=== PATIENT | female | born 1980 | race Two or more races ===

== ENCOUNTER 2024-09-04 23:39 | Inpatient (IN) | payer OTHER, SELFPAY ==
[2024-09-04 23:59] VITALS: BP 96/61; PULSE 81; RESP 20; TEMP 37; O2SAT 100
[2024-09-05] VITALS (27 sets, daily range): BP systolic 40–140; BP diastolic 33–96; PULSE 67–108; RESP 15–29; TEMP 36–37.1; O2SAT 96–100; BMI 33.9
[2024-09-05] MEDS: ONDANSETRON INJ 2 MG/ML INJ 2 ML 4 MG IV ×4 (00:02→19:20)
[2024-09-05 00:11] LABS: Basophils % (Auto) 0 % (0-2.5); Eosinophils # (Auto) 0.2 Thou/mm3 (0.0-0.5); Eosinophils % (Auto) 1 % (0-10); Hematocrit 36.3 % (36.0-46.0); Hemoglobin 12.5 g/dL (12.0-16.0); Immature Granulocytes % (Auto) 0 % (0-0); Immature Granulocytes Auto 0.04 Thou/mm3 (0.00-0.00); Lymphocytes # (Auto) 4.5 Thou/mm3 (1.0-4.8); Lymphocytes % (Auto) 32 % (10-50); Mean Corpuscular HGB Conc 34.4 g/dl (31.0-37.0); Mean Corpuscular Hemoglobin 29.6 pg (25.0-35.0); Mean Corpuscular Volume 86 fL (80-100); Monocytes # (Auto) 1.1 Thou/mm3 (0.0-0.8); Monocytes % (Auto) 8 % (0-12); Neutrophils # (Auto) 8.4 Thou/mm3 (1.8-7.7); Neutrophils % (Auto) 59 % (37-80); Nucleated Red Blood Cell % 0 /100 WBC (0); Platelet Count 245 Thou/mm3 (140-440); RDW Standard Deviation 39.5 fL (36.4-46.3); Red Blood Count 4.23 Miln/mm3 (4.00-5.20); White Blood Count 14.2 Thou/mm3 (3.6-11.0)
[2024-09-05 00:28] LABS: Alanine Aminotransferase 26 U/L (10-49); Albumin, Serum 4.2 gm/dL (3.5-5.0); Albumin/Globulin Ratio 1.8 (1.2-2.2); Alkaline Phosphatase 46 U/L (46-116); Anion Gap 9 (7-16); Aspartate Amino Transferase 28 U/L (0-34); BUN/Creatinine Ratio 9 Ratio (12-20); Bilirubin,Total 0.3 mg/dL (0.3-1.2); Blood Urea Nitrogen 8 mg/dL (9-23); Calcium 9.3 mg/dL (8.3-10.6); Calcium (Corrected) 9.3 mg/dL (8.5-10.1); Carbon Dioxide 21.9 mMol/L (20.0-31.0); Chloride 105 mMol/L (98-107); Creatinine (Component) 0.9 mg/dL (0.6-1.3); Globulin 2.4 gm/dL (2.3-3.5); Glucose 115 mg/dL (74-106); Osmolality,Calculated 271 (275-295); Potassium 3.2 mMol/L (3.4-5.1); Sodium 136 mMol/L (136-145); Total Protein 6.6 gm/dL (5.7-8.2); Troponin I < 0.020 ng/mL (0.0-0.045); eGFR > 60 See Note
[2024-09-05 00:44] LABS: INR 0.9 (0.9-1.3); Partial Thromboplastin Time 20.5 Seconds (22.0-36.0); Prothrombin Time 10.2 Seconds (9.0-12.2)
[2024-09-05] MEDS: METOCLOPRAMIDE INJ 5 MG/ML VIAL 2 ML 10 MG IVP (00:44)
[2024-09-05] MEDS: SODIUM CHLORIDE 0.9% 1000 ML 1,000 ML 999 ML IV ×2 (00:44→12:28)
[2024-09-05 01:02] LABS: Beta HCG,Quantitative 49789 mIU/mL (<5.0)
--- NOTE | 2024-09-05 01:08 | PD.EDABDPN ---
ED Abdominal Pain RME/HPI General Chief Complaint: Abdominal Pain Stated complaint: ABD PAIN,N/V Time seen by provider: 09/04/24 23:45 Arrival date/time: 09/04/24 23:39 RME / HPI RME / HPI narrative: Dr. Guerra?s Main ED Evaluation: 43yo @ 8 weeks 6 days by LMP (07/05/24) presents to the ED for a chief complaint of lower abdominal pain and dry heaving starting approximately 20 min before arrival. States the pain radiates to her epigastric area. She reports associated nausea, dry heaving, and diffuse abdominal pain. States she had diarrhea yesterday. She denies vomitus, fever, chills. Denies urinary symptoms. Denies vaginal bleeding, vaginal discharge or any other associated symptoms. Denies any history of similar symptoms. No known allergies. Patient states she recently finished treatment for bronchitis, reporting she was on albuterol, prednisone, and an inhaler. Patient states she has her first OB appointment on Saturday to establish care. She is taking prenatals. Related Data Previous Rx's ?Medication ?Instructions ?Recorded docusate sodium 100 mg capsule 100 mg PO QDAY 30 days #30 caps 09/05/24 hydrocodone 5 mg-acetaminophen 325 1 tab PO Q6H PRN pain 5 days #20 09/05/24 mg tablet tabs ibuprofen 800 mg tablet 800 mg PO Q6H 10 days #40 tabs 09/05/24 Allergies Allergy/AdvReac Type Severity Reaction Status Date / Time No Known Allergies Allergy Verified 09/05/24 05:15 Review of Systems Review of Systems Systems Reviewed: All systems reviewed, normal except as documented Narrative Review of Systems: Gen: No fever, no chills, no weight loss, + shortness of breath EYES: No discharge, no visual changes, no pain HEENT: No ear pain, no congestion, no sore throat PULM: + shortness of breath, no cough, no congestion CV: No chest pain, no dyspnea on exertion, no palpitations GI: + nausea, no vomiting, + diarrhea, + pain, no constipation : No frequency, no urgency, no dysuria, + vaginal pain Musc/skel: No joint pain, no back pain Skin: No rash Psyc: No hallucinations, no depression Heme/Lymph: No easy bleeding or bruising tendencies Neuro: No weakness, no headache Past Medical History Past Medical History CARDIAC: Negative Congestive Heart Failure RESPIRATORY: Positive Asthma and Bronchitis; Negative Chronic Obstructive Pulmonary Disease (COPD) GENITOURINARY: Negative Renal Disease ENDOCRINE: Negative Diabetes Mellitus Type 1 or Diabetes Mellitus Type 2 Surgical History OTHER SURGICAL HX: Hx LEEP Social History SMOKING STATUS: Never smoker ED Exam Narrative Physical exam: GENERAL APPEARANCE: alert and oriented x 4, well-developed, well-nourished, no acute distress HEENT: Normocephalic, atraumatic; pupils equal, round, reactive to light; EOMI; mucous membranes pink, moist; oropharynx clear NECK: Supple LUNGS: CTABL; no wheezes, no rales, no rhonchi HEART: Regular rate, regular rhythm; normal S1, S2; no murmurs ABDOMEN: mildly distended; normal BS; soft, bilateral lower abdominal tenderness, no guarding, no rebound; no masses, no organomegaly, no hernia BACK: no CVA tenderness EXTREMITIES: atraumatic; no edema NEUROLOGIC: awake; alert and oriented x4; cranial nerves II-XII grossly intact; no focal sensory or motor deficits PSYCHIATRIC: appropriate mood and affect SKIN: warm, dry, normal color; no rashes Course Course Course Narrative: 0233: Called urgently to bedside by nurse that the patient is acutely worse, hypotensive at 69/37 with increasing lower abdominal pain, tenderness, and fullness. Abdomen acutely tender, fullness. Patient pale, diaphoretic. Concern for ruptured ectopic. 2L NS IVF, type and screen, PRBCs uncrossmatched x 2 stat, crossmatched x 2 stat, and STAT pelvic ultrasound ordered. Call out to Dr. Rodgers for emergent consult. 0240: Patient states she knows she's bloodtype A+. 0247: US is here. 0254: Dr. Rodgers is here. 0259: Dr. Rodgers called the house shorer to let her know we need to take to the patient to the OR stat. 0310: BP is 82/47 with a HR of 81. 0316: BP is 64/40 with a HR of 81. 0320: BP is 78/50 with a HR of 76. Patient has received 1U of PRBCs and is receiving a 2nd and 3rd. 0339: Patient to OR. Quality Measures none Orders Category Date Time Status Place in Surgical Day Care Routine Admission 09/05/24 03:11 Active Consent [Obtain Written Consent For:] .NOW Care 09/05/24 03:09 Completed EKG (ED ONLY) *Do not use* NOW Care 09/04/24 23:56 Completed Insert IV NOW Care 09/05/24 00:10 Completed Transfuse,blood/blood products NOW Care 09/05/24 02:34 Completed Transfuse,blood/blood products NOW Care 09/05/24 04:15 Completed Diet Regular Diet 09/05/24 Breakfast Completed EKG (ED Only) Stat Exams 09/04/24 23:56 Ordered US OB <= 14 weeks fetus Stat Exams 09/05/24 02:42 Completed Beta HCG,Quantitative Stat Lab 09/04/24 23:55 Completed CBC Stat Lab 09/04/24 23:55 Completed CBC Stat Lab 09/05/24 06:10 Completed CBC [CBC] Timed Lab 09/05/24 11:31 Completed Comprehensive Metabolic Panel Stat Lab 09/04/24 23:55 Completed FFP [Fresh Frozen Plasma] Stat Lab 09/05/24 02:56 Results Lipase Stat Lab 09/04/24 23:55 Completed PT [Prothrombin Time with INR] Stat Lab 09/04/24 23:55 Completed Partial Thromboplastin Time Stat Lab 09/04/24 23:55 Completed Red Blood Cells Stat Lab 09/05/24 02:56 Results Troponin I Stat Lab 09/04/24 23:55 Completed Type and Screen Stat Lab 09/05/24 02:56 Results Acetaminophen Tab [Tylenol ES Tab] Med 09/05/24 02:24 Discontinued 1,000 mg PO X1 ONE Acetaminophen Tab [Tylenol Tab] Med 09/05/24 03:10 Discontinued 650 mg PO Q6H PRN Bupivacaine Mpf 0.25% [Sensorcaine-Mpf Inj 0.25%] Med 09/05/24 03:42 Discontinued 50 ml .ROUTE .STK-MED ONE Dexamethasone Inj [Decadron Inj] Med 09/05/24 03:30 Discontinued 10 mg .ROUTE .STK-MED ONE Glycopyrrolate Inj [Robinul Inj] Med 09/05/24 04:52 Discontinued 1 mg .ROUTE .STK-MED ONE Lidocaine Inj Pf 2% 2 ml [Xylocaine Inj Pf Inj 2% 2 ml] Med 09/05/24 03:38 Discontinued 2 ml .ROUTE .STK-MED ONE Meperidine Inj [Demerol Inj] Med 09/05/24 06:05 Discontinued 12.5 mg IV Q5M PRN Metoclopramide Inj [Reglan Inj] Med 09/05/24 00:30 Discontinued 10 mg IVP X1 ONE Metoclopramide Inj [Reglan Inj] Med 09/05/24 00:34 Discontinued 10 mg IVP X1 ONE Metoclopramide Inj [Reglan Inj] Med 09/05/24 06:05 Discontinued 10 mg IVP X1 PRN Midazolam Inj [Versed Inj] Med 09/05/24 03:48 Discontinued 2 mg .ROUTE .STK-MED ONE Morphine Inj Med 09/05/24 07:20 Discontinued 2 mg IVP Q4HR PRN Morphine Inj Med 09/05/24 04:57 Discontinued 4.5 mg IV Q3HR PRN Neostigmine Inj 1:1000 [Bloxiverz Inj 1:1000] Med 09/05/24 04:52 Discontinued 10 ml .ROUTE .STK-MED ONE Ondansetron Inj [Zofran Inj] Med 09/05/24 03:08 Discontinued 4 mg .ROUTE .STK-MED ONE Ondansetron Inj [Zofran Inj] Med 09/05/24 03:10 Discontinued 4 mg IV Q6H PRN Ondansetron Inj [Zofran Inj] Med 09/04/24 23:57 Discontinued 4 mg IV X1 ONE Ondansetron Inj [Zofran Inj] Med 09/05/24 03:13 Discontinued 4 mg IV X1 ONE PHENYLEPHRINE INJ in NS [Morro-synephrine Inj/Ns] Med 09/05/24 03:46 Discontinued 1,000 mcg .ROUTE .STK-MED ONE Propofol Inj [Diprivan Inj] Med 09/05/24 03:30 Discontinued 200 mg IV .STK-MED ONE Rocuronium Inj [Zemuron Inj] Med 09/05/24 03:30 Discontinued 100 mg .ROUTE .STK-MED ONE Simethicone [Mylicon Chew] Med 09/05/24 07:43 Discontinued 80 mg PO QID PRN Sodium Chloride 0.9% 1000 ml [Ns] 1,000 ml Med 09/05/24 00:21 Discontinued IV 999 mls/hr Sodium Chloride 0.9% 1000 ml [Ns] 2,000 ml Med 09/05/24 02:30 Discontinued IV 999 mls/hr Tranexamic Acid Inj Med 09/05/24 04:28 Discontinued 1,000 mg .ROUTE .STK-MED ONE bisacodyL [Dulcolax Supp] Med 09/05/24 03:10 Discontinued 10 mg LA QDAY PRN bisacodyL [Dulcolax] Med 09/05/24 03:10 Discontinued 10 mg PO QDAY PRN fentaNYL INJ [Sublimaze Inj] Med 09/05/24 03:30 Discontinued 100 mcg .ROUTE .STK-MED ONE fentaNYL INJ [Sublimaze Inj] Med 09/05/24 04:56 Discontinued 100 mcg .ROUTE .STK-MED ONE fentaNYL INJ [Sublimaze Inj] Med 09/05/24 06:05 Discontinued 50 mcg IV Q5MIN PRN fentaNYL INJ [Sublimaze Inj] Med 09/05/24 02:40 Discontinued 50 mcg IVP X1 ONE hydrALAZINE INJ [Apresoline Inj] Med 09/05/24 06:05 Discontinued 5 mg IV Q20MIN PRN Code Status Routine Oth 09/05/24 06:42 Completed Late Tray Request Routine Oth 09/05/24 07:41 Active Transfer Order Routine Transfer 09/05/24 05:03 Completed Vital Signs Vital signs: Vital Signs Temperature 98.6 F 09/04/24 23:59 Pulse Rate 81 09/04/24 23:59 Respiratory Rate 20 09/04/24 23:59 Blood Pressure 96/61 09/04/24 23:59 Pulse Oximetry (%) 100 09/04/24 23:59 Oxygen Delivery Method Room Air 09/04/24 23:59 Pulse ox is 100% on room air, which is normal according to my interpretation. Abdominal Pain MDM MDM Narrative MDM Narrative:: Scribe Attestation: 09/05/24 - Nai Marques am scribing for and in the presence of Dr. Guerra. Patient data External records reviewed:: [facility] previous records (Per chart review, patient has no previous ED visits or admissions to this facility.) Clinical information provided by:: patient Social determinants that could affect healthcare access:: none Patient has the following chronic illnesses:: asthma How is presenting disease/condition affected by chronic disease/condition?: uneffected by Evaluation data The following diagnostics were reviewed and interpreted by me:: lab results, radiology exam(s) and EKG tracing(s) Lab and/or radiology exams considered but not ordered:: none Interpretation Summary: WBC count is elevated at 14.2, Lipase is slightly elevated at 55, Potassium is slightly low at 3.2, [place] [address], according to my interpretation. EKG done at 0019 shows NSR, rate of 65, baseline wander, Q waves in lead II, III, and aVF, no acute ischemic changes, according to my interpretation. Medications / Prescriptions Medications or Prescriptions considered but not ordered:: none Medication administrations:: Medication Administration History Discontinued Medications Acetaminophen (Acetaminophen 500 Mg Tablet) 1,000 mg PO X1 ONE Stop: 09/05/24 02:25 Last Admin: 09/05/24 02:27 Dose: 1,000 mg Documented By: ANDI Acetaminophen (Acetaminophen 325 Mg Tablet) 650 mg PO Q6H PRN PRN Reason: Fever >101.5 Stop: 10/05/24 03:09 Hydrocodone Bitart/Acetaminophen (Hydrocodone/Apap 5/325 Tablet) 1 tab PO Q4HR PRN PRN Reason: PAIN SCALE 1-3 (mild Stop: 09/11/24 09:08 Hydrocodone Bitart/Acetaminophen (Hydrocodone/Apap 5/325 Tablet) 2 tab PO Q6HR PRN PRN Reason: PAIN SCALE 7-10 (Severe Stop: 09/11/24 09:08 Last Admin: 09/07/24 08:32 Dose: 2 tab Documented By: Admin: 09/07/24 02:06 Dose: 2 tab Documented By: Admin: 09/06/24 19:27 Dose: 2 tab Documented By: Admin: 09/06/24 13:17 Dose: 2 tab Documented By: JEET Bisacodyl (Bisacodyl 5 Mg Tabec) 10 mg PO QDAY PRN PRN Reason: CONSTIPATION Stop: 10/05/24 03:09 Bisacodyl (Bisacodyl 10 Mg Supp) 10 mg LA QDAY PRN PRN Reason: CONSTIPATION Stop: 10/05/24 03:09 Bupivacaine HCl (Bupivacaine Mpf 0.25% 50 Ml Vial) Confirm Administered Dose 50 ml .ROUTE .STK-MED ONE Stop: 09/05/24 03:43 Dexamethasone Sodium Phosphate (Dexamethasone Sod Phos Inj 10 Mg/Ml Vial) Confirm Administered Dose 10 mg .ROUTE .STK-MED ONE Stop: 09/05/24 03:31 Diphenhydramine HCl (Diphenhydramine Inj 50 Mg/Ml Vial) 25 mg IV Q2HR PRN PRN Reason: ITCHING Stop: 10/05/24 12:12 Docusate Sodium (Docusate Sod 100 Mg Capsule) 100 mg PO QDAY DEISI Stop: 10/05/24 12:14 Last Admin: 09/07/24 08:32 Dose: 100 mg Documented By: Admin: 09/06/24 08:39 Dose: 100 mg Documented By: Admin: 09/05/24 14:10 Dose: 100 mg Documented By: BILL Fentanyl Citrate (Fentanyl Cit Inj 50 Mcg/Ml Amp 2ml) 50 mcg IVP X1 ONE Stop: 09/05/24 02:41 Last Admin: 09/05/24 03:43 Dose: Not Given Documented By: ANDI Non-Admin Reason: Change of Condition Fentanyl Citrate (Fentanyl Cit Inj 50 Mcg/Ml Amp 2ml) Confirm Administered Dose 100 mcg .ROUTE .STK-MED ONE Stop: 09/05/24 03:31 Fentanyl Citrate (Fentanyl Cit Inj 50 Mcg/Ml Amp 2ml) Confirm Administered Dose 100 mcg .ROUTE .STK-MED ONE Stop: 09/05/24 04:57 Fentanyl Citrate (Fentanyl Cit Inj 50 Mcg/Ml Amp 2ml) 50 mcg IV Q5MIN PRN PRN Reason: PAIN SCALE 4-10(Mod-Sev Stop: 09/05/24 08:05 Glycopyrrolate (Glycopyrrolate Inj 0.2 Mg/Ml Vial 5 Ml) Confirm Administered Dose 1 mg .ROUTE .STK-MED ONE Stop: 09/05/24 04:53 Hydralazine HCl (Hydralazine Inj 20 Mg/Ml Vial) 5 mg IV Q20MIN PRN PRN Reason: SEE COMMENTS Stop: 09/05/24 08:05 Sodium Chloride (Ns) 1,000 mls @ 999 mls/hr IV .Q1H1M ONE Stop: 09/05/24 01:21 Last Infusion: 09/05/24 02:24 Dose: Infused Documented By: Admin: 09/05/24 00:44 Dose: 999 mls/hr Documented By: ANDI Sodium Chloride (Ns) 2,000 mls @ 999 mls/hr IV .Q2H1M ONE Stop: 09/05/24 04:30 Last Admin: 09/05/24 03:35 Dose: 999 mls/hr Documented By: ANDI Promethazine HCl 25 mg/ Sodium (Chloride) 51 mls @ 2.5 mls/min IV Q6HR PRN PRN Reason: NAUSEA OR VOMITING Stop: 10/05/24 12:12 Last Admin: 09/06/24 00:14 Dose: 2.5 mls/min Documented By: Infusion: 09/05/24 17:52 Dose: Infused Documented By: Admin: 09/05/24 17:31 Dose: 2.5 mls/min Documented By: BILL Sodium Chloride (Ns) 1,000 mls @ 200 mls/hr IV .Q5H [facility] Stop: 10/05/24 12:14 Last Admin: 09/06/24 04:04 Dose: 200 mls/hr Documented By: Infusion: 09/05/24 18:00 Dose: Infused Documented By: Admin: 09/05/24 13:53 Dose: 200 mls/hr Documented By: JUANI Piperacillin Sod/Tazobactam (Sod 3.375 gm/ Sodium Chloride) 50 mls @ 12.5 mls/hr IV Q8HR [facility] Stop: 09/12/24 21:59 Last Admin: 09/06/24 05:13 Dose: 12.5 mls/hr Documented By: Infusion: 09/06/24 01:54 Dose: Infused Documented By: Admin: 09/05/24 21:54 Dose: 12.5 mls/hr Documented By: JENNIFER Sodium Chloride (Ns) 1,000 mls @ 999 mls/hr IV .Q1H1M ONE Stop: 09/05/24 13:16 Last Admin: 09/05/24 12:28 Dose: 999 mls/hr Documented By: BILL Piperacillin Sod/Tazobactam (Sod 3.375 gm/ Sodium Chloride) 50 mls @ 12.5 mls/hr IV X1 ONE Stop: 09/05/24 16:29 Last Admin: 09/05/24 14:10 Dose: 12.5 mls/hr Documented By: BILL Ketorolac Tromethamine (Ketorolac Inj 30 Mg/Ml Vial) 30 mg IVP Q6HR [facility] Stop: 09/11/24 11:59 Last Admin: 09/07/24 06:22 Dose: 30 mg Documented By: Admin: 09/06/24 23:27 Dose: 30 mg Documented By: Admin: 09/06/24 17:44 Dose: 30 mg Documented By: Admin: 09/06/24 12:01 Dose: 30 mg Documented By: JEET Lactulose (Lactulose Syrup 20 Gm/30 Ml Udc) 10 gm PO TID DEISI Stop: 10/06/24 09:14 Last Admin: 09/07/24 06:22 Dose: 10 gm Documented By: Admin: 09/06/24 22:11 Dose: 10 gm Documented By: Admin: 09/06/24 13:16 Dose: 10 gm Documented By: Admin: 09/06/24 10:25 Dose: 10 gm Documented By: JEET Lidocaine HCl (Lidocaine Inj Pf 2% 2 Ml Vial) Confirm Administered Dose 2 ml .ROUTE .STK-MED ONE Stop: 09/05/24 03:39 Magnesium Hydroxide (Milk Of Magnesia Susp 30 Ml Udc) 30 ml PO X1 ONE Stop: 09/05/24 12:14 Last Admin: 09/05/24 14:10 Dose: 30 ml Documented By: BILL Meperidine HCl (Meperidine Inj 50 Mg/Ml Vial) 12.5 mg IV Q5M PRN PRN Reason: SHIVERING Stop: 09/05/24 08:05 Metoclopramide HCl (Metoclopramide Inj 5 Mg/Ml Vial 2 Ml) 10 mg IVP X1 ONE; Protocol Stop: 09/05/24 00:31 Last Admin: 09/05/24 00:36 Dose: Not Given Documented By: KAITLYNN Non-Admin Reason: Duplicate Medication on eMAR Metoclopramide HCl (Metoclopramide Inj 5 Mg/Ml Vial 2 Ml) 10 mg IVP X1 ONE; Protocol Stop: 09/05/24 00:35 Last Admin: 09/05/24 00:44 Dose: 10 mg Documented By: ANDI Metoclopramide HCl (Metoclopramide Inj 5 Mg/Ml Vial 2 Ml) 10 mg IVP X1 PRN; Protocol PRN Reason: NAUSEA OR VOMITING Stop: 09/05/24 08:05 Midazolam HCl (Midazolam Inj 1 Mg/Ml Vial 2 Ml) Confirm Administered Dose 2 mg .ROUTE .STK-MED ONE Stop: 09/05/24 03:49 Morphine Sulfate (Morphine Sulf Inj 10 Mg/Ml Vial) 4.5 mg IV Q3HR PRN PRN Reason: PAIN SCALE 7-10 (Severe Stop: 09/10/24 04:56 Morphine Sulfate (Morphine Sulf Inj 10 Mg/Ml Vial) 2 mg IVP Q4HR PRN PRN Reason: PAIN Stop: 09/10/24 07:19 Last Admin: 09/05/24 11:53 Dose: 2 mg Documented By: Admin: 09/05/24 07:56 Dose: 2 mg Documented By: BILL Morphine Sulfate (Morphine Sulf 1 Mg/Ml [employer] Supervisor Syringe 30 Ml) 0 mg POST HOLE DIGGER PER ORDER DEISI; Protocol Stop: 09/10/24 12:29 Last Admin: 09/05/24 20:36 Dose: 30 mg Documented By: JENNIFER Co-signed By: JC Admin: 09/05/24 12:40 Dose: 30 mg Documented By: BILL Co-signed By: DEV Neostigmine Methylsulfate (Neostigmine Inj 1:1000 10 Ml Vial) Confirm Administered Dose 10 ml .ROUTE .STK-MED ONE Stop: 09/05/24 04:53 Ondansetron HCl (Ondansetron Inj 2 Mg/Ml Inj 2 Ml) 4 mg IV X1 ONE; Protocol Stop: 09/04/24 23:58 Last Admin: 09/05/24 00:02 Dose: 4 mg Documented By: ANDI Ondansetron HCl (Ondansetron Inj 2 Mg/Ml Inj 2 Ml) 4 mg IV Q6H PRN PRN Reason: NAUSEA OR VOMITING Stop: 10/05/24 03:09 Last Admin: 09/05/24 11:57 Dose: 4 mg Documented By: BILL Ondansetron HCl (Ondansetron Inj 2 Mg/Ml Inj 2 Ml) 4 mg IV X1 ONE; Protocol Stop: 09/05/24 03:14 Last Admin: 09/05/24 03:24 Dose: 4 mg Documented By: ANDI Ondansetron HCl (Ondansetron Inj 2 Mg/Ml Inj 2 Ml) Confirm Administered Dose 4 mg .ROUTE .STK-MED ONE Stop: 09/05/24 03:09 Last Admin: 09/05/24 03:25 Dose: Not Given Documented By: ANDI Non-Admin Reason: Duplicate Medication on eMAR Ondansetron HCl (Ondansetron Inj 2 Mg/Ml Inj 2 Ml) 4 mg IV Q6HR PRN PRN Reason: NAUSEA OR VOMITING Stop: 10/05/24 12:12 Last Admin: 09/07/24 08:32 Dose: 4 mg Documented By: Admin: 09/07/24 02:06 Dose: 4 mg Documented By: Admin: 09/06/24 19:27 Dose: 4 mg Documented By: Admin: 09/06/24 05:19 Dose: 4 mg Documented By: Admin: 09/05/24 19:20 Dose: 4 mg Documented By: WO Phenylephrine HCl (Phenylephrine Inj In Ns 100 Mcg/Ml 10 Ml Syringe) Confirm Administered Dose 1,000 mcg .ROUTE .STK-MED ONE Stop: 09/05/24 03:47 Propofol (Propofol Inj 10 Mg/Ml Vial 20 Ml) Confirm Administered Dose 200 mg IV .STK-MED ONE Stop: 09/05/24 03:31 Rocuronium [place] (Rocuronium Inj 10 Mg/Ml Vial 10 Ml) Confirm Administered Dose 100 mg .ROUTE .STK-MED ONE Stop: 09/05/24 03:31 Simethicone (Simethicone 80 Mg Chew) 80 mg PO QID PRN PRN Reason: GAS Stop: 10/05/24 07:42 Last Admin: 09/06/24 22:11 Dose: 80 mg Documented By: Admin: 09/06/24 10:30 Dose: 80 mg Documented By: Admin: 09/05/24 19:20 Dose: 80 mg Documented By: Admin: 09/05/24 14:13 Dose: 80 mg Documented By: Admin: 09/05/24 07:52 Dose: 80 mg Documented By: BILL Tranexamic Acid (Tranexamic Acid Inj 1,000 Mg/10 Ml Vial) Confirm Administered Dose 1,000 mg .ROUTE .STK-MED ONE Stop: 09/05/24 04:29 see above Consultations Consultation(s) initiated? (list below): Yes Consultation #1 (Physician, Specialty, Details): Discussed case with [Dr. Rodgers] from [[facility]] regarding [consultation]. Discussed patients ED course, exam findings, labs, and radiology results. States to get O- blood and start transfusing the patient STAT, and is on her way here to the ED. Time: 02:36 Diagnosis Differential diagnosis abdominal pain: other (ectopic ) Most likely diagnosis given after review of the tests above:: see below Admission Indicated Admission indicated?: indicated Admission Request Was there a request for admission?: Yes Admission Attestation Admission request attestation: Discussed case with [] from Hospitalist service regarding admission. Discussed patients ED course, exam findings, labs, and radiology results. The Hospitalist [agrees,declines] to accept the patient for admission. Disposition Plan Disposition Plan: Admit Critical Care Time Critical Care Time Critical Care Time: Yes Total Critical Care Time (min.): 60 Attestation: The high probability of sudden, clinically significant deterioration in the patient?s condition required the highest level of my preparedness to intervene urgently. The services I provided to this patient were to treat and/or prevent clinically significant deterioration. Services included the following: chart data review, reviewing nursing notes and/or old charts, documentation time, data integrity consultant collaboration regarding findings and treatment options, medication orders and management, direct patient care, vital sign assessments and ordering, interpreting and reviewing diagnostic studies and lab tests. Aggregate critical care time includes only time during which I was engaged in work directly related to the patient?s care, as described above, whether at bedside or elsewhere in the Emergency Department. It did not include time spent performing other reported procedures or the services of residents, students, nurses or physician assistants. Discharge Plan Plan Patient Disposition: Admit Acute Care w/in Hospital Disposition Comment: Dr Rodgers Patient condition on transfer: Stable Problem List Clinical Impression: Ruptured ectopic
[2024-09-05 01:12] LABS: Lipase 55 U/L (12-53)
[2024-09-05] MEDS: ACETAMINOPHEN 500 MG TABLET 1000 MG PO (02:27)
--- NOTE | 2024-09-05 02:42 | XR_ITS ---
Examination: Complete OB ultrasound, less than 14 weeks, transabdominal Date and time of exam: September 05, 2024 0250 hrs. Technique: Obstetrical images less than 14 weeks performed via transabdominal imaging Indications: Lower abdominal pain pelvic pain today, clinical diagnosis ruptured ectopic Findings: Uterus 9.8 x 6.7 x 8.3 cm No intrauterine gestation Right adnexal complex mass 9.3 x 9.8 x 9.7 cm without contrast. Visualization of the right ovary Left ovary obscured by bowel gas Impression: No intrauterine gestation 9.3 x 9.8 x 9.7 cm complex mass right adnexal region, high on the differential list ruptured ectopic , recommend follow-up
--- NOTE | 2024-09-05 02:55 | PC.NURSE ---
Dr. Guerra made aware of Pt being blood pressure 69/33 and increase lower ABD pain with increase pain on palpation, ABD distention and Pt change in condition. New orders given from Dr. Guerra to rapid infuse 5 units of uncross blood product and 2000ml of normal saline wide open.
--- NOTE | 2024-09-05 03:01 | ESHP_ITS ---
Documentation for date of: 09/05/24 CRYSTALIZER OPERATOR - HPI History of Present Illness History of present illness: Ms. SARGENT is a 43 year old female 1 para 0 from [facility] presented here with lower abdominal pain acute onset starting earlier today. Patient had a positive test at home and was waiting to establish care with TRANSPORT ASSISTANT here. Denies any previous surgical history. LMP July 05 Meds Home Medications and Allergies Allergies Allergy/AdvReac Type Severity Reaction Status Date / Time No Known Allergies Allergy Verified 09/04/24 23:49 Exam - CRYSTALIZER OPERATOR Vital Signs Temp Pulse Resp BP Pulse Ox O2 Del Method 97.9 F 88 16 69/33 L 100 Room Air 09/05/24 02:56 09/05/24 02:56 09/05/24 02:56 09/05/24 02:56 09/05/24 02:56 09/05/24 02:29 Narrative Exam Patient is an extreme amount of pain. Speaking in very short sentences and complains of pain even on breathing Routine Respiratory Exam Comments: Difficulty breathing limited by pain Routine Abdominal Exam Comments: Distended, tenderness, guarding positive, rigidity positive Ultrasound poor images, possible free fluid on image review CRYSTALIZER OPERATOR - Results Labs 09/04/24 23:55 09/04/24 23:55 Labs: Short CBC 09/04/24 Range/Units 23:55 WBC 14.2 H (3.6-11.0) Thou/mm3 Hgb 12.5 (12.0-16.0) g/dL Hct 36.3 (36.0-46.0) % Plt Count 245 (140-440) Thou/mm3 BMP 09/04/24 23:55 Sodium 136 Potassium 3.2 L Chloride 105 Carbon Dioxide 21.9 BUN 8 L Creatinine 0.9 Glucose 115 H Calcium 9.3 Cardiac Enzymes 09/04/24 Range/Units 23:55 Troponin I < 0.020 (0.0-0.045) ng/mL Liver Function 09/04/24 Range/Units 23:55 Total Bilirubin 0.3 (0.3-1.2) mg/dL AST 28 (0-34) U/L ALT 26 (10-49) U/L Alkaline Phosphatase 46 (46-116) U/L Albumin 4.2 (3.5-5.0) gm/dL Impressions Impression: 43-year-old G1, P0 approximately 8 weeks with acute abdomen Ruptured ectopic cannot be ruled out Beta-hCG 4 9789 Hemoglobin 11 Assessment and Plan Additional Assessment & Plan Additional Plan: Double IV line 2 units crossmatched packed RBC 1 unit transfusion to be started Diagnostic laparoscopy for possible ruptured ectopic, possible unilateral salpingectomy, possible bilateral salpingectomy, possible salpingo-oophorectomy, possible laparotomy Quality Measures Quality Measures none
[2024-09-05] MEDS: SODIUM CHLORIDE 0.9% 1000 ML 2,000 ML 999 ML IV (03:35)
--- NOTE | 2024-09-05 03:36 | PC.NURSE ---
Care transfer to surgical team
--- NOTE | 2024-09-05 03:58 | PRELIM_ITS ---
Pelvic ultrasound (transabdominal). September 05, 2024 at 0250 hours Clinical history: Ectopic. Lower abdominal pain radiating to epigastric x today. LMP 07/05/2024.Findings:The uterus is normal in size measuring 9.7 x 6.7 x 8.3 cm. The endometrium is not visualized. No intrauterine gestational sac is s een at this time. The right ovary is not visualized. There is a 9.3 x 9.8 x 9.7 cm complex right adn exal mass.The left ovary is not visualized. There is no free fluid.Impression:9.3 x 9.8 x 9.7 cm comp romel right adnexal mass, highly suspicious for ectopic gestation. Recommend correlation with Beta hCG and follow-up. No evidence of intrauterine gestation at this time. Discussion Details: Results Discu ssed With : Dr. Guerra at 03:46 AM 09/05/2024 Report Electronically Signed By: Joe Quinones 2023 3:58:05 AM [EST]
--- NOTE | 2024-09-05 05:04 | PD.GYNPROC ---
Operative Note - FAMILY SUPPORT SPECIALIST Procedure Date of procedure: 09/05/24 Procedure Performed: Diagnostic laparoscopy evacuation of hemoperitoneum, right salpingectomy Indication: Ruptured right tubal ectopic Pre-Op diagnosis: Ruptured ectopic Post-Op diagnosis: Right tubal ectopic , ruptured, massive hemoperitoneum Anesthesia type: General Procedure description: Patient was taken to the operating room. General anesthesia was given without any complications.? A time out was given confirming billy Gardner was undergoing the following, procedure,allergies, and surgeon.The patient was positioned in the dorsal lithotomy position. The bladder was emptied. The perineum was prepped with Betadine solution per routine.The abdomen was prepped with DuraPrep.Attention was then focused to the vagina.? A sponge placed in a ring forceps was placed in the posterior fornix and used as a uterine manipulator.? The surgeon then changed gloves to continue proper sterile technique. Attention was diverted to the abdomen. An umblical incision was first made, Two towel clips were placed lateral to the umbilicus in order to elevate the abdominal wall.? A hemostat was used to assess the depth to the fascia. While applying countertraction by lifting the towel clips, a Veress needle was used to enter the peritoneal cavity, a initial abdominal pressure of 12 mmHg was noted upon entry. Veress needle used for initial pneumoperitoneum establishment. 5 mm port used for the direct trocar entry the abdomen was then insufflated with CO2 gas to 15mmHg, under the opti-view system was advanced into the peritoneal entry.? The rt lower quadrant was evaluated and a `10-mm incision was made . 10-mm trocar placed under camera surveillance.? Left side evaluated and a 5mm trocar inserted under optiview surveillance. On observation: Massive hemo-peritoneum occluding all anatomy. 10 suction tip was used to evacuate all the blood clots and finally anatomy was visualized to reveal right ruptured ectopic tubal . Using Enseal device right salpingectomy performed hemostasis was maintained using Endo Catch bag through the 10 mm port specimen was retrieved, again thorough irrigation and suction was done to empty all blood clots in her peritoneal cavity Surgicel powder used on the mesosalpinx. Using Corey Couch device 10 mm port closed. Estimated blood loss (ml): 2,500 Complications: none Surgical staff Operation Date: 09/05/24 03:45 Case Staff Anesthesiologist: Sanjeev Ordonez chief crna: Obed Rodriguez Diagnosis Problem List Completed Was Problem List Reviewed/Reconciled?: Yes
--- NOTE | 2024-09-05 05:16 | SUR.PHASEI ---
Arrived to recovery bay 1 via gurney. Resting with eyes closed. No c/o pain or discomfort. Responding to questions and commands appropriately. x3 lap sites on abdomen with dermabond C/D/I. PRBCs infusing. Barba cath draining clear yellow urine. Samara pad C/D/I. Abdomen soft. Report received from Roselyn SOLOMON and Dr. Ordonez. Dr. Ordonez remains at bedside.
--- NOTE | 2024-09-05 06:01 | SUR.PHASEI ---
Lab at bedside to draw CBC. Dr. Ordonez at bedside monitoring vital signs and FFP infusion. Resting with eyes closed. No s/o distress or discomfort.
--- NOTE | 2024-09-05 06:10 | PD.ANESPROG ---
Documentation for date of: 09/05/24 ANESTHESIA NOTE: Patient had GETA for emergent lap ectopic removal from ruptured ectopic. Pre-op, I saw her in holding. She appeared lethargic but answered questions appropriately, c/o abdominal pain which appeared distended. She reported she had bronchitis about 3 weeks ago, which has improved with treatment, but still has residual non productive cough. In ED, she has been hypotensive, SBP 60-70s, and was being given RBC transfusion. Her R forearm appeared tense probably from infiltrated 20 g PIV nearby and she endorsed R forearm pain. She was receiving blood via 20 g R wrist IV that appeared ok. She was taken to OR without delay and intubated uneventfully. I used her 20 g PIV L AC and also L forearm NIBP cuff. Laparoscopy revealed large amount of blood and clots in her abdomen. She came to OR with 3rd bag of RBC from ER, that was completed in OR, and she was given 4rth bag of RBC intra-op, and 5th bag also started that was completed in PACU. She did well intra-op. She needed intermittent IV Phenylephrine bolus to maintain her BP. At the end, she was extubated uneventfully, vitals stable without needing Phyenylephrine. Barba was placed. Her R forearm 20 g PIV was removed and dressing applied. She was taken to PACU drowsy but responsive, VSS, head elevated. She has been in PACU post op resting calmly, NAD, receiving FFP, and CBC being drawn. Her R hand is slightly cool to touch as her other extremities but otherwise is unremarkable for now, cap refill < 5 sec, no cyanosis, able to move her R fingers and hands, no R hand pain. Will defer further management to the surgeon/primary team. Sanjeev Ordonez MD Anesthesia Progress Note Progress Note Most recent Vital Signs: Last Vital Signs Temp 97.1 F 09/05/24 05:46 Pulse 71 09/05/24 05:46 Resp 17 09/05/24 05:46 BP 125/91 H 09/05/24 05:46 Pulse Ox 100 09/05/24 05:46 O2 Del Method Room Air 09/05/24 02:29 O2 Flow Rate 2 09/05/24 05:46
[2024-09-05 06:26] LABS: Basophils # (Auto) 0.1 Thou/mm3 (0.0-0.2); Basophils % (Auto) 0 % (0-2.5); Eosinophils % (Auto) 0 % (0-10); Hemoglobin 15.3 g/dL (12.0-16.0); Immature Granulocytes % (Auto) 2 % (0-0); Immature Granulocytes Auto 0.52 Thou/mm3 (0.00-0.00); Lymphocytes # (Auto) 1.8 Thou/mm3 (1.0-4.8); Lymphocytes % (Auto) 7 % (10-50); Mean Corpuscular HGB Conc 33.3 g/dl (31.0-37.0); Mean Corpuscular Hemoglobin 30.1 pg (25.0-35.0); Mean Corpuscular Volume 90 fL (80-100); Monocytes # (Auto) 1.1 Thou/mm3 (0.0-0.8); Monocytes % (Auto) 4 % (0-12); Neutrophils # (Auto) 21.4 Thou/mm3 (1.8-7.7); Neutrophils % (Auto) 86 % (37-80); Nucleated Red Blood Cell % 0 /100 WBC (0); Platelet Count 121 Thou/mm3 (140-440); RDW Standard Deviation 42.9 fL (36.4-46.3); Red Blood Count 5.09 Miln/mm3 (4.00-5.20); White Blood Count 24.9 Thou/mm3 (3.6-11.0)
--- NOTE | 2024-09-05 06:44 | SUR.PHASEI ---
Taken to room 369 via gurney. x3 lap sites remain C/D/I. Samara pad C/D/I. Barba cath draining clear yellow urine. Flowtrons bilateral lower extremities. Responding to questions and commands appropriately. Tolerating ice chips PO. Dr. Ordonez in to see patient before going upstairs. Made aware patient c/o chest pressure. Dr. Ordonez states patient is stable and may be taken to med/surg. Educated patient on deep breathing exercises. Transferred to bed bed and made comfortable, tolerated well. Call light in hand. Family at bedside. No s/o distress, no c/o pain.
--- NOTE | 2024-09-05 06:47 | PC.NURSE ---
Received pt in room from Recovery.
[2024-09-05] MEDS: SIMETHICONE 80 MG CHEW PO ×3 (07:52→19:20)
[2024-09-05] MEDS: MORPHINE SULF INJ 10 MG/ML VIAL 2 MG IVP ×2 (07:56→11:53)
--- NOTE | 2024-09-05 10:33 | PC.SS ---
Torri Gardner is an 43-year-old female admitted to Med-Surg for Acute Abd, Laparoscopy . SS conducted bedside contact with the patient to complete initial assessment and to discuss discharge planning. Patient confirmed demographic information. Patient identifies her sister, Theresa Gardner [phone] as her surrogate decision maker. Patient resides at home it her life partner. Pt states she is able to complete all ADLs independently; no need for any source of DME. Pts PCP is Dr. Daniel Jerez and her pharmacy of choice is [facility]. DC options discussed and pt wishes to return home, no needs identified at this time. Pts lp will provide transportation upon DC. No further intervention required at this time, social sciences research scientist would be available to address any further concerns.
[2024-09-05 11:57] LABS: Basophils % (Auto) 0 % (0-2.5); Eosinophils % (Auto) 0 % (0-10); Hematocrit 39.5 % (36.0-46.0); Hemoglobin 13.9 g/dL (12.0-16.0); Immature Granulocytes % (Auto) 1 % (0-0); Immature Granulocytes Auto 0.18 Thou/mm3 (0.00-0.00); Lymphocytes # (Auto) 1.1 Thou/mm3 (1.0-4.8); Lymphocytes % (Auto) 5 % (10-50); Mean Corpuscular HGB Conc 35.2 g/dl (31.0-37.0); Mean Corpuscular Hemoglobin 29.9 pg (25.0-35.0); Mean Corpuscular Volume 85 fL (80-100); Monocytes # (Auto) 0.6 Thou/mm3 (0.0-0.8); Monocytes % (Auto) 3 % (0-12); Neutrophils # (Auto) 18.7 Thou/mm3 (1.8-7.7); Neutrophils % (Auto) 91 % (37-80); Nucleated Red Blood Cell % 0 /100 WBC (0); Platelet Count 128 Thou/mm3 (140-440); RDW Standard Deviation 40.4 fL (36.4-46.3); Red Blood Count 4.65 Miln/mm3 (4.00-5.20); White Blood Count 20.5 Thou/mm3 (3.6-11.0)
[2024-09-05] MEDS: MORPHINE SULF 1 MG/ML PCA SYRINGE 30 ML PCA ×2 (12:40→20:36)
[2024-09-05] MEDS: SODIUM CHLORIDE 0.9% 1000 ML 1,000 ML 200 ML IV (13:53)
[2024-09-05] MEDS: DOCUSATE SOD 100 MG CAPSULE PO (14:10)
[2024-09-05] MEDS: PIPER/TAZO INJ 3.375 GM in SODIUM CHLORIDE 0.9% (P) 50 ML IV ×2 (14:10→21:54)
[2024-09-05] MEDS: Milk Of Magnesia Susp 30 ML UDC PO (14:10)
--- NOTE | 2024-09-05 14:36 | XR_ITS ---
Examination: CTA chest, with intravenous contrast. CTA abdomen, with intravenous contrast. CTA pelvis, with intravenous contrast. 2-D sagittal and coronal reconstructions. 3-D reconstructions. Date and time of exam: September 05, 2024 1517 hrs. Indications: Acute abdomen, abdominal pain, clinical diagnosis mesenteric ischemia CTDI vol (mgy) 20.8 DLP (MGycm) 1118 Technique: Multiple CTA images, 2.0 mm slice thickness, obtained chest, abdomen, pelvis, with the high-resolution 64 slice scanner. 2-D sagittal coronal reconstructions Patient received 100 cc Isovue 370 Low dose protocols 3-D post processing including vascular maximum intensity projections Automated exposure control, adjustment MA KV according to patient size Findings: No thoracic aortic aneurysmal dilatation No pulmonary artery emboli No paratracheal tracheobronchial or bronchopulmonary adenopathy No pneumonia or pulmonary edema or pulmonary infarction Extensive free fluid throughout the abdomen with pneumoperitoneum The gallbladder wall appears edematous but the patient has free fluid Spleen is not enlarged No pancreatic or adrenal mass Mucosa in the stomach and duodenum is thickened The uterus is not enlarged No adnexal mass Urinary bladder is contracted around a Barba catheter Air in the bowel wall is identified The aorta is not enlarged The osseous structures are intact Impression: Negative for pulmonary artery emboli No pneumonia or pulmonary edema Pneumoperitoneum Extensive free fluid/blood in the abdomen, clinical correlation advised No air in the bowel wall noted The gallbladder wall is thickened however the patient again has significant fluid in the abdomen Mucosa in the stomach and duodenum is thickened
--- NOTE | 2024-09-05 17:02 | PC.NURSE ---
called pharmacy for dose of phenergan
[2024-09-05] MEDS: PROMETHAZINE INJ 25 MG in SODIUM CHLORIDE 0.9% 50 ML IV (17:31)
--- NOTE | 2024-09-05 18:45 | PC.NURSE ---
called Dr. Guardado re: CT result
--- NOTE | 2024-09-05 19:01 | PC.NURSE ---
cleared 9 mg morphine used from [employer] pump
[2024-09-06] VITALS (7 sets, daily range): BP systolic 104–127; BP diastolic 64–87; PULSE 86–101; RESP 16–35; TEMP 36.4–36.8; O2SAT 96–99
[2024-09-06] MEDS: PROMETHAZINE INJ 25 MG in SODIUM CHLORIDE 0.9% 50 ML IV (00:14)
[2024-09-06] MEDS: SODIUM CHLORIDE 0.9% 1000 ML 1,000 ML 200 ML IV (04:04)
[2024-09-06] MEDS: PIPER/TAZO INJ 3.375 GM in SODIUM CHLORIDE 0.9% (P) 50 ML IV (05:13)
[2024-09-06] MEDS: ONDANSETRON INJ 2 MG/ML INJ 2 ML 4 MG IV ×2 (05:19→19:27)
[2024-09-06 06:13] LABS: Basophils % (Auto) 0 % (0-2.5); Eosinophils % (Auto) 0 % (0-10); Hematocrit 30.6 % (36.0-46.0); Hemoglobin 10.6 g/dL (12.0-16.0); Immature Granulocytes % (Auto) 1 % (0-0); Immature Granulocytes Auto 0.06 Thou/mm3 (0.00-0.00); Lymphocytes # (Auto) 1.4 Thou/mm3 (1.0-4.8); Lymphocytes % (Auto) 12 % (10-50); Mean Corpuscular HGB Conc 34.6 g/dl (31.0-37.0); Mean Corpuscular Hemoglobin 30.2 pg (25.0-35.0); Mean Corpuscular Volume 87 fL (80-100); Monocytes # (Auto) 1.4 Thou/mm3 (0.0-0.8); Monocytes % (Auto) 12 % (0-12); Neutrophils # (Auto) 9.5 Thou/mm3 (1.8-7.7); Neutrophils % (Auto) 76 % (37-80); Nucleated Red Blood Cell % 0 /100 WBC (0); Platelet Count 139 Thou/mm3 (140-440); RDW Standard Deviation 42.5 fL (36.4-46.3); Red Blood Count 3.51 Miln/mm3 (4.00-5.20); White Blood Count 12.4 Thou/mm3 (3.6-11.0)
[2024-09-06 06:51] LABS: Partial Thromboplastin Time 21.7 Seconds (22.0-36.0)
[2024-09-06 07:03] LABS: Alanine Aminotransferase 36 U/L (10-49); Albumin, Serum 3.6 gm/dL (3.5-5.0); Albumin/Globulin Ratio 1.9 (1.2-2.2); Alkaline Phosphatase 46 U/L (46-116); Anion Gap 10 (7-16); Aspartate Amino Transferase 24 U/L (0-34); BUN/Creatinine Ratio 15 Ratio (12-20); Bilirubin,Total 1.2 mg/dL (0.3-1.2); Blood Urea Nitrogen 12 mg/dL (9-23); Calcium (Corrected) 8.3 mg/dL (8.5-10.1); Carbon Dioxide 20.2 mMol/L (20.0-31.0); Chloride 106 mMol/L (98-107); Creatinine (Component) 0.8 mg/dL (0.6-1.3); Estimated Creatinine Clearance 107.6 mL/min (>60); Globulin 1.9 gm/dL (2.3-3.5); Glucose 133 mg/dL (74-106); Osmolality,Calculated 273 (275-295); Potassium 3.7 mMol/L (3.4-5.1); Sodium 136 mMol/L (136-145); Total Protein 5.5 gm/dL (5.7-8.2); eGFR > 60 See Note
[2024-09-06] MEDS: DOCUSATE SOD 100 MG CAPSULE PO (08:39)
--- NOTE | 2024-09-06 08:57 | ESPR_ITS ---
Documentation for date of: 09/06/24 GOLF COURSE LABORER Subjective Subjective Interval history: Patient doing well this morning. Pain is adequately controlled on the current regimen. No incisional complaints, no chest pain, shortness of breath, breathing difficulties. Ambulating, tolerating p.o., Adequate UOP CT scan and lab results were reviewed, consistent with postoperative status Exam Vital Signs Temp Pulse Resp BP Pulse Ox O2 Del Method O2 Flow Rate 97.7 F 100 16 111/71 99 Nasal Cannula 1 09/06/24 08:00 09/06/24 08:00 09/06/24 08:00 09/06/24 08:00 09/06/24 08:00 09/06/24 08:00 09/06/24 08:00 Constitutional Constitutional: no acute distress Routine HEENT Exam Head: Present normocephalic and atraumatic Eye: Present EOMI and PERRL ENT: Present mucous membranes moist Routine Neck Exam Neck: Present supple and trachea midline Routine Respiratory Exam Respiratory: Present chest non-tender, lungs clear, normal breath sounds and no resp distress Routine Cardiovascular Exam Cardiovascular: Present RRR Routine Abdominal Exam Abdominal: Present soft and normoactive bowel sounds Routine Extremities Exam Extremities: Present full ROM Routine Skin Exam Skin: Present intact and dry Routine Neurological Exam Neurological: Present alert, oriented X3 and CN II-XII intact Routine Psychiatric Exam Psychiatric: Present normal affect and normal thought process Urinary Catheter Management Cath placed during this visit: no GOLF COURSE LABORER - PN: Obj Data Labs 09/06/24 05:03 09/06/24 05:03 Labs: Laboratory Results - last 24 hr 09/05/24 09/06/24 11:31 05:03 WBC 20.5 H 12.4 H D RBC 4.65 3.51 L Hgb 13.9 10.6 L D Hct 39.5 30.6 L MCV 85 87 MCH 29.9 30.2 MCHC 35.2 34.6 RDW Std Deviation 40.4 42.5 Plt Count 128 L 139 L Neut % (Auto) 91 H 76 Lymph % (Auto) 5 L 12 Preston % (Auto) 3 12 Eos % (Auto) 0 0 Baso % (Auto) 0 0 Neut # (Auto) 18.7 H 9.5 H Lymph # (Auto) 1.1 1.4 Preston # (Auto) 0.6 1.4 H Eos # (Auto) 0.0 0.0 Baso # (Auto) 0.0 0.0 Immature Gran # (Auto) 0.18 H 0.06 H Absolute Nucleated RBC 0.00 0.00 Immature Gran % 1 H 1 H Nucleated RBC % 0 0 PT 11.0 INR 1.0 APTT 21.7 L Sodium 136 Potassium 3.7 D Chloride 106 Carbon Dioxide 20.2 Anion Gap 10 BUN 12 Creatinine 0.8 Estim Creat Clear Calc 107.6 eGFR > 60 BUN/Creatinine Ratio 15 Glucose 133 H Calculated Osmolality 273 L Calcium 8.0 L Corrected Calcium 8.3 L Total Bilirubin 1.2 D AST 24 ALT 36 Alkaline Phosphatase 46 Total Protein 5.5 L Albumin 3.6 D Globulin 1.9 L Albumin/Globulin Ratio 1.9 GOLF COURSE LABORER - A/P Assessment and plan (1) Ruptured ectopic : Status: Acute Assessment and plan: POD#1 1. Continue routine post operative care 2. Transition to PO meds. 3. Encourage to ambulate 4. Anticipate discharge home today. 5. Home care instructions reviewed Postoperative Procedures: Procedures Operation Date: 09/05/24 03:45 Actual Procedure Side Surgeon p diagnostic laparoscopy, right salpingectomy Armand Rodgers MD Time Spent With Patient Time: Total time spent is greater than 50% in coordination of care (as documented) at patient's floor/unit and/or counseling patient: Time with patient: less than 15 minutes
--- NOTE | 2024-09-06 10:15 | PC.NURSE ---
MEDICAL CHEMIST discontinued at 10:15. 15 mL of morphine wasted with second nurse Anabell SOLOMON.
[2024-09-06] MEDS: LACTULOSE SYRUP 20 GM/30 ML UDC 10 GM PO ×3 (10:25→22:11)
[2024-09-06] MEDS: SIMETHICONE 80 MG CHEW PO ×2 (10:30→22:11)
[2024-09-06] MEDS: KETOROLAC INJ 30 MG/ML VIAL IVP ×3 (12:01→23:27)
[2024-09-06] MEDS: HYDROcodone/APAP 5/325 TABLET 2 TAB PO ×2 (13:17→19:27)
[2024-09-07] VITALS: BP 114/70; PULSE 83; RESP 18; TEMP 36.4; O2SAT 94
[2024-09-07] MEDS: HYDROcodone/APAP 5/325 TABLET 2 TAB PO ×2 (02:06→08:32)
[2024-09-07] MEDS: ONDANSETRON INJ 2 MG/ML INJ 2 ML 4 MG IV ×2 (02:06→08:32)
[2024-09-07 04:00] VITALS: BP 99/76; PULSE 83; PULSE 97; RESP 20; TEMP 36.6; O2SAT 96
[2024-09-07] MEDS: KETOROLAC INJ 30 MG/ML VIAL IVP (06:22)
[2024-09-07] MEDS: LACTULOSE SYRUP 20 GM/30 ML UDC 10 GM PO (06:22)
--- NOTE | 2024-09-07 07:24 | PD.GYNPROG ---
Documentation for date of: 09/07/24 DESKTOP SUPPORT SPECIALIST Subjective Subjective Interval history: Elevated. Afebrile, tolerating p.o. ambulating, voiding, positive flatus Exam Vital Signs Temp Pulse Resp BP Pulse Ox O2 Del Method O2 Flow Rate 98 F 83 20 99/76 96 Room Air 1 09/07/24 04:00 09/07/24 04:00 09/07/24 04:00 09/07/24 04:00 09/07/24 04:00 09/07/24 04:00 09/07/24 04:00 Routine Abdominal Exam Comments: Soft, appropriate tender. Urinary Catheter Management Cath placed during this visit: yes, but has since been removed by the nurse Removal date: 09/06/24 Removal time: 10:15 DESKTOP SUPPORT SPECIALIST - PN: Obj Data Labs 09/06/24 05:03 09/06/24 05:03 DESKTOP SUPPORT SPECIALIST - A/P Assessment and plan (1) Ruptured ectopic : Status: Acute Postoperative Procedures: Procedures Operation Date: 09/05/24 03:45 Actual Procedure Side Surgeon p diagnostic laparoscopy, right salpingectomy Armand Rodgers MD Postoperative day: 2 Postoperative status: doing well Postoperative plan: routine post-op care and discharge Time Spent With Patient Time: Total time spent is greater than 50% in coordination of care (as documented) at patient's floor/unit and/or counseling patient: Time with patient: 25 - 35 minutes
--- NOTE | 2024-09-07 07:25 | ESDS_ITS ---
Planned Discharge Date 09/07/24 DS: Providers Provider Primary care physician: Physician No Primary/Family Attending Provider on Admission: Yordy Guardado MD Attending Provider on DC: Cordell Noe MD Discharging Provider: Cordell Noe MD DS: Diagnosis Problem List Completed Was Problem List Reviewed/Reconciled?: Yes Hospital Course Time Spent with Patient Time attestation: Total time spent providing and/or coordinating discharge services: Exam - DIESEL POWERPLANT MECHANIC Vital Signs Temp Pulse Resp BP Pulse Ox O2 Del Method O2 Flow Rate 98 F 83 20 99/76 96 Room Air 1 09/07/24 04:00 09/07/24 04:00 09/07/24 04:00 09/07/24 04:00 09/07/24 04:00 09/07/24 04:00 09/07/24 04:00 Discharge Plan Plan Patient Disposition: HOME (Self Care) Patient condition on transfer: Stable Prescriptions/Referrals Prescriptions/Med Rec: New docusate sodium 100 mg Capsule 100 mg PO QDAY 30 Days Qty: 30 0RF hydrocodone-acetaminophen 5-325 mg tablet 1 tab PO Q6H MDD 4 PRN (Reason: pain) 5 Days Qty: 20 0RF ibuprofen 800 mg tablet 800 mg PO Q6H 10 Days Qty: 40 0RF Referrals: Yordy Guardado MD [Physician] - No Primary/Family,Physician [Primary Care Provider] - In 1 week Patient/Caregiver Discharge Instructions Meds to Beds: Yes Discharge Activity: activity as tolerated Education Materials: After Laparoscopic Treatment ... Print Language: [place] Stand Alone Forms: Elsy Award Info., Patient Portal Info Letter Discharge Order Discharge Orders: Discharge (Routine); Ordered 09/07/24 Ordered By: Cordell Noe
[2024-09-07 07:41] VITALS: BP 99/76; PULSE 68; RESP 19; TEMP 36.6; O2SAT 97
[2024-09-07] MEDS: DOCUSATE SOD 100 MG CAPSULE PO (08:32)
== END 2024-09-07 10:55 | disposition home or self-care (01) | DRG 817 ==
LOC: SERX 09-05 03:30 → S2EX 09-05 03:39 → S3SX 09-05 07:47 → S2EX 09-08 07:20 → S3SX 09-08 07:20
PROVIDERS: Physician Assistant; Admitting Provider Obstetrics & Gynecology; Emergency Provider Emergency Medicine; Referring Provider Student in an Organized Health Care Education/Training Program; Visit Provider Obstetrics & Gynecology
PROC: 10T20ZZ Resection of Products of Conception, Ectopic, Open Approach (ICD-10-PCS; CPT 49320; principal; 2024-09-05 03:30)
DX: O00.101 Right tubal pregnancy without intrauterine pregnancy (principal); K66.1 Hemoperitoneum
CPT/HCPCS: 36415; 36430; 71275; 74174; 76801; 80053; 80307; 81001; 83690; 84484; 84702; 85025; 85610; 85730; 86850; 86900; 86901; 86920; 86923; 86927; 96361; 96374; 96375; 99291; A4217; A4649; J1100; J1885; J2250; J2270; J2371; J2405; J2543; J2550; J2704; J2710; J2765; J3010; J3490; J7030; J7050; P9016; P9060; Q9967; A9270; J1596